=== PATIENT | female | born 1955 | race Caucasian/White ===

== ENCOUNTER 2024-11-06 00:11 | Inpatient (IN) | payer OTHER, MEDICARE ==
[~2024-11-06] VITALS: Ht 167.6 cm; Wt 56.7 kg
[2024-11-06] MEDS: DEXTROSE 50% WATER 50ML SYRINGE IV ONE (06:18)
[2024-11-06 08:27] LABS: BASOPHILS % 0.6 % (0.0-2.0); EOSINOPHILS % 4.3 % (0.0-5.0); HEMATOCRIT. 41.1 % (36.0-48.0); HEMOGLOBIN. 13.4 g/dL (12.0-16.0); LYMPHOCYTES % 12.8 % (20.0-50.0); MEAN CORPUSCULAR HEMOGLOBIN 28.3 pg (28.0-32.0); MEAN CORPUSCULAR HGB CONC 32.5 g/dL (31.0-37.0); MEAN CORPUSCULAR VOLUME 87.1 fL (81.0-99.0); MEAN PLATELET VOLUME 9.2 fl (7.4-10.4); MONOCYTES % 9.1 % (2.0-8.0); NEUTROPHILS % 73.2 % (40.0-76.0); PLATELET 272 x1000/uL (130-400); RED BLOOD CELL COUNT 4.72 mill/uL (4.2-5.4); WHITE BLOOD COUNT 6.9 x1000/uL (4.5-11.0)
[2024-11-06 08:36] LABS: CARBON DIOXIDE 22 mEq/L (21-32); CHLORIDE 112 mEq/L (98-107); POTASSIUM 3.4 mEq/L (3.5-5.1); SODIUM 142 mEq/L (136-145)
[2024-11-06 08:37] LABS: CALCIUM 11.7 mg/dL (8.7-10.4)
[2024-11-06 08:42] LABS: GLUCOSE 259 mg/dL (70-105); UREA NITROGEN BLOOD 17 mg/dL (9-23)
[2024-11-06 08:44] LABS: ACETAMINOPHEN < 2 ug/mL (10-30); TROPONIN I HIGH SENSITIVITY 10 ng/L (3.0-34)
[2024-11-06 08:47] LABS: ETHANOL BLOOD < 10 mg/dL (<10)
[2024-11-06 08:48] LABS: THYROID STIMULATING HORMONE 2.06 uIU/mL (0.55-4.78)
[2024-11-06] MEDS ORDERED: ACETAMINOPHEN 325MG TABLET PO PRN ×2 (09:45)
[2024-11-06] MEDS ORDERED: GUAIFENESIN 200MG/10ML SUGAR FREE UDC PO PRN (09:45)
[2024-11-06] MEDS ORDERED: MAGNESIUM/ALUMINUM HYDROXIDE/SIMETHICONE 30ML UDC PO PRN (09:45)
[2024-11-06] MEDS ORDERED: ONDANSETRON HCL 4MG/2ML INJ IV PRN (09:45)
[2024-11-06] MEDS ORDERED: DOCUSATE SODIUM 100MG CAPSULE PO PRN (09:45)
[2024-11-06] MEDS ORDERED: IPRATROPIUM/ALBUTEROL 0.5-3(2.5)MG/3ML NEB HHN PRN (09:45)
[2024-11-06 10:06] LABS: TROPONIN I HIGH SENSITIVITY 10 ng/L (3.0-34)
[2024-11-06] MEDS ORDERED: KCL 10MEQ/50ML PREMIX 50 ML IV NR (10:11)
[2024-11-06] MEDS ORDERED: DEXTROSE 50% WATER 50ML SYRINGE IV PRN (13:00)
[2024-11-06] MEDS: BLOOD SUGAR DIAGNOSTIC STRIP TEST SCH (13:46)
[2024-11-06] MEDS: INSULIN LISPRO 100 UNITS/ML SUBCUT SCH (13:53)
[2024-11-06] MEDS ORDERED: LOSARTAN 25 MG TABLET PO SCH (16:30)
[2024-11-06 20:00] VITALS: BP 152/51; PULSE 59; RESP 20; TEMP 37.0852
[2024-11-06] MEDS ORDERED: TICA90TA PO (20:05)
[2024-11-06] MEDS: TICAGRELOR 90 MG TABLET PO SCH (21:00)
[2024-11-06] MEDS ORDERED: LOSA50TA41 PO (21:14)
[2024-11-06] MEDS ORDERED: DONE5TAB33 PO (21:14)
[2024-11-06] MEDS ORDERED: ROSU20CA PO (21:14)
[2024-11-06] MEDS ORDERED: MIRT-90 PO (21:14)
[2024-11-06] MEDS ORDERED: NPH,100V SUBCUT (21:14)
[2024-11-06] MEDS ORDERED: METO25TA6 PO (21:14)
[2024-11-06] MEDS ORDERED: ARIP10TA86 PO (21:14)
[2024-11-06] MEDS ORDERED: ASPI-1497 PO (21:15)
[2024-11-07] VITALS: BP 159/60; PULSE 60; RESP 20; TEMP 36.33624; O2SAT 99
[2024-11-07 04:00] VITALS: BP 170/54; PULSE 60; RESP 20; TEMP 36.72516; O2SAT 99
[2024-11-07] MEDS: CLONIDINE 0.1MG TABLET PO PRN (04:23)
[2024-11-07 06:14] LABS: POTASSIUM 3.7 mEq/L (3.5-5.1)
[2024-11-07 06:15] LABS: CALCIUM 11.2 mg/dL (8.7-10.4)
[2024-11-07 06:16] LABS: CALCIUM 11.1 mg/dL (8.7-10.4)
[2024-11-07 06:18] LABS: AMMONIA 20 uMol/L (<32)
[2024-11-07 06:21] LABS: ALBUMIN 3.7 g/dL (3.2-4.8)
[2024-11-07 06:22] LABS: CREATINE KINASE 15 IU/L (34-145)
[2024-11-07 06:34] LABS: CREATINE KINASE < 15 IU/L (34-145)
[2024-11-07 07:02] LABS: BASOPHILS % 0.5 % (0.0-2.0); EOSINOPHILS % 4.4 % (0.0-5.0); HEMATOCRIT. 40.9 % (36.0-48.0); HEMOGLOBIN. 13.6 g/dL (12.0-16.0); LYMPHOCYTES % 13.2 % (20.0-50.0); MEAN CORPUSCULAR HEMOGLOBIN 28.7 pg (28.0-32.0); MEAN CORPUSCULAR HGB CONC 33.1 g/dL (31.0-37.0); MEAN CORPUSCULAR VOLUME 86.5 fL (81.0-99.0); MEAN PLATELET VOLUME 9.4 fl (7.4-10.4); MONOCYTES % 7.4 % (2.0-8.0); NEUTROPHILS % 74.5 % (40.0-76.0); PLATELET 240 x1000/uL (130-400); RED BLOOD CELL COUNT 4.73 mill/uL (4.2-5.4); RED CELL DISTRIBUTION WIDTH 14.5 % (11.6-14.6); WHITE BLOOD COUNT 8.3 x1000/uL (4.5-11.0)
[2024-11-07 08:00] VITALS: BP 142/52; PULSE 53; RESP 18; TEMP 36.44736; O2SAT 95
[2024-11-07] MEDS: LOSARTAN 50 MG TABLET PO SCH (09:00)
[2024-11-07] MEDS ORDERED: SODIUM CHLORIDE 0.45% 1,000 ML IV SCH (09:00)
[2024-11-07] MEDS: SODIUM CHLORIDE 0.9% 500 ML IV ONE (10:26)
[2024-11-07] MEDS: POTASSIUM CHLORIDE 20MEQ/PACKET PO NR (10:26)
[2024-11-07] MEDS: ASPIRIN 81MG TABLET PO NR (10:27)
[2024-11-07] MEDS: ASPIRIN 81MG TABLET PO SCH (10:30)
[2024-11-07 12:00] VITALS: BP 135/57; PULSE 50; RESP 18; TEMP 36.22512; O2SAT 95
[2024-11-07] MEDS ORDERED: TICAGRELOR 90 MG TABLET PO SCH (13:00)
[2024-11-07 16:00] VITALS: BP 107/38; PULSE 45; RESP 18; TEMP 36.55848; O2SAT 96
[2024-11-07] MEDS ORDERED: INSULIN LISPRO 100 UNITS/ML SUBCUT SCH (16:45)
[2024-11-07 18:42] VITALS: BP 107/38; PULSE 45; TEMP 97.8; O2SAT 96
[2024-11-07] MEDS ORDERED: INSULIN GLARGINE 100 UNITS/ML SUBCUT SCH (22:00)
== END 2024-11-07 19:01 | disposition short-term general hospital (02) | DRG 71 ==
LOC: ER 00:15 → 5WST 06:14 → EDBEDREQ 06:28 → EDBEDREQTM 06:28
PROVIDERS: ADMIT Internal Medicine; ATTEND Internal Medicine
DX: G93.49 Other encephalopathy (principal); F20.2 Catatonic schizophrenia; R00.1 Bradycardia, unspecified; E11.9 Type 2 diabetes mellitus without complications; E83.52 Hypercalcemia; E87.6 Hypokalemia; F03.90 Unspecified dementia, unspecified severity, without behavioral disturbance, psychotic disturbance, mood disturbance, and anxiety; I10 Essential (primary) hypertension; I25.10 Atherosclerotic heart disease of native coronary artery without angina pectoris; T50.995A Adverse effect of other drugs, medicaments and biological substances, initial encounter; Z79.82 Long term (current) use of aspirin; Z86.73 Personal history of transient ischemic attack (TIA), and cerebral infarction without residual deficits; Z95.5 Presence of coronary angioplasty implant and graft; Y92.89 Other specified places as the place of occurrence of the external cause
CPT/HCPCS: 36415; 71045; 80048; 80307; 80320; 80329; 82040; 82140; 82310; 82550; 82962; 83036; 83605; 83735; 83970; 84100; 84443; 84484; 85025; 93005; 99285; J1815; J3480; G0480; J8499

== ENCOUNTER 2024-11-20 12:34 | Inpatient (IN) | payer OTHER, MEDICARE ==
[~2024-11-20] VITALS: Ht 162.6 cm; Wt 56.9 kg
[~2024-11-20 12:34] MED LIST: ARIP10TA86 PO; ASPI-1497 PO; DONE5TAB33 PO; LOSA50TA41 PO; METO25TA6 PO; MIRT-90 PO; NPH,100V SUBCUT; ROSU20CA PO; TICA90TA PO
[2024-11-20 12:38] VITALS: O2SAT 89
[2024-11-20] MEDS ORDERED: NALOXONE HCL 0.4MG/ML 1ML VIAL IV NR (12:45)
[2024-11-20] MEDS ORDERED: NALOXONE HCL 0.4MG/ML 1ML VIAL ONE (13:07)
[2024-11-20] MEDS: ASPIRIN 81MG TABLET PO ONE (13:28)
[2024-11-20] MEDS: SODIUM CHLORIDE 0.9% (SEPSIS BOLUS) IV ONE (13:29)
[2024-11-20] MEDS: CEFTRIAXONE 1GM/50ML 50 ML IV ONE (13:30)
[2024-11-20 15:37] LABS: HEMOGLOBIN. 12.9 g/dL (12.0-16.0); MEAN CORPUSCULAR HEMOGLOBIN 28.3 pg (28.0-32.0); MEAN CORPUSCULAR HGB CONC 30.7 g/dL (31.0-37.0); MEAN CORPUSCULAR VOLUME 92.2 fL (81.0-99.0); RED BLOOD CELL COUNT 4.55 mill/uL (4.2-5.4); RED CELL DISTRIBUTION WIDTH 15.9 % (11.6-14.6); WHITE BLOOD COUNT 16.5 x1000/uL (4.5-11.0)
[2024-11-20 15:38] LABS: DIFFERENTIAL COMMENT 1
[2024-11-20 15:43] LABS: CHLORIDE 117 mEq/L (98-107); POTASSIUM 3.1 mEq/L (3.5-5.1); SODIUM 149 mEq/L (136-145)
[2024-11-20 15:44] LABS: CALCIUM 12.1 mg/dL (8.7-10.4); CARBON DIOXIDE 20 mEq/L (21-32)
[2024-11-20 15:49] LABS: GLUCOSE 366 mg/dL (70-105); LACTIC ACID 2.9 mmol/L (0.4-2.0); UREA NITROGEN BLOOD 36 mg/dL (9-23)
[2024-11-20 15:51] LABS: BETA HYDROXYBUTYRATE 0.9 mMol/L (0.0-0.3); ETHANOL BLOOD < 10 mg/dL (<10); TROPONIN I HIGH SENSITIVITY 127 ng/L (3.0-34)
[2024-11-20 15:54] LABS: PARTIAL THROMBOPLASTIN TIME < 21.0 sec (23.4-31.0); PROTHROMBIN TIME 11.1 sec (9.6-11.0)
[2024-11-20] MEDS: AZITHROMYCIN 500MG/250ML 250 ML IV ONE (16:08)
[2024-11-20 16:12] LABS: MEAN PLATELET VOLUME 9.8 fl (7.4-10.4); PLATELET 228 x1000/uL (130-400)
[2024-11-20 16:13] LABS: PLATELET ESTIMATE NORMAL
[2024-11-20] MEDS ORDERED: ACETAMINOPHEN 650MG SUPP PR PRN (19:15)
[2024-11-20] MEDS ORDERED: ACETAMINOPHEN 650MG/20.3ML UDC GT PRN (19:15)
[2024-11-20] MEDS ORDERED: IPRATROPIUM/ALBUTEROL 0.5-3(2.5)MG/3ML NEB HHN PRN (19:15)
[2024-11-20] MEDS ORDERED: DOCUSATE SODIUM 100MG CAPSULE PO PRN (19:15)
[2024-11-20] MEDS ORDERED: GUAIFENESIN 200MG/10ML SUGAR FREE UDC PO PRN (19:15)
[2024-11-20] MEDS ORDERED: MAGNESIUM/ALUMINUM HYDROXIDE/SIMETHICONE 30ML UDC PO PRN (19:15)
[2024-11-20] MEDS ORDERED: DEXTROSE 50% WATER 50ML SYRINGE IV PRN (19:15)
[2024-11-20] MEDS ORDERED: CLONIDINE 0.1MG TABLET PO PRN (19:15)
[2024-11-20] MEDS ORDERED: ONDANSETRON HCL 4MG/2ML INJ IV PRN (19:15)
[2024-11-20] MEDS: BLOOD SUGAR DIAGNOSTIC STRIP TEST SCH (21:35)
[2024-11-20] MEDS: INSULIN LISPRO 100 UNITS/ML SUBCUT SCH (21:47)
[2024-11-20 21:48] LABS: CLARITY URINE CLOUDY (CLEAR); COLOR URINE YELLOW (YELLOW); GLUCOSE URINE 3+ (NEGATIVE); KETONES URINE TRACE (NEGATIVE); LEUKOCYTE ESTERASE URINE TRACE (NEGATIVE); NITRITE URINE NEGATIVE (NEGATIVE); OCCULT BLOOD URINE 2+ (NEGATIVE); PROTEIN URINE 2+ (NEGATIVE); SPECIFIC GRAVITY URINE 1.024 (1.005-1.030); UROBILINOGEN URINE 0.2 E.U./dL (0.2-1.0)
[2024-11-20] MEDS: METOPROLOL TARTRATE 25MG TABLET PO SCH (21:57)
[2024-11-20 21:58] LABS: BACTERIA URINE 2+; SQUAMOUS EPITHELIAL CELL URINE 2+ /lpf (RARE/1+)
[2024-11-20] MEDS: SODIUM CHLORIDE 0.45% 1,000 ML IV SCH (21:59)
[2024-11-20] MEDS: KCL 20MEQ/100ML PREMIX 100 ML IV SCH (22:00)
[2024-11-20] MEDS ORDERED: PIPERACILLIN/TAZO 3.375G/100ML 100 ML IV SCH (22:00)
[2024-11-20 22:04] LABS: *AMPHETAMINES SCREEN URINE NEGATIVE (NEGATIVE); *BARBITURATES SCREEN URINE NEGATIVE (NEGATIVE); *BENZODIAZEPINES SCREEN URINE NEGATIVE (NEGATIVE); *COCAINE SCREEN URINE NEGATIVE (NEGATIVE); CANNABINOID URINE SCREEN NEGATIVE (NEGATIVE); ECSTASY MDMA SCREEN URINE NEGATIVE (NEGATIVE); METHADONE URINE SCREEN NEGATIVE (NEGATIVE); OPIATES URINE SCREEN NEGATIVE (NEGATIVE); PHENCYCLIDINE URINE SCREEN NEGATIVE (NEGATIVE)
[2024-11-21 00:58] LABS: TROPONIN I HIGH SENSITIVITY 490 ng/L (3.0-34)
[2024-11-21] MEDS: ENOXAPARIN 30MG/0.3ML SYR SUBCUT SCH (01:31)
[2024-11-21 05:16] LABS: BASOPHILS % 0.2 % (0.0-2.0); EOSINOPHILS % 0.2 % (0.0-5.0); HEMATOCRIT. 33.2 % (36.0-48.0); LYMPHOCYTES % 9.3 % (20.0-50.0); MEAN CORPUSCULAR VOLUME 87.7 fL (81.0-99.0); MEAN PLATELET VOLUME 9.2 fl (7.4-10.4); MONOCYTES % 7.9 % (2.0-8.0); NEUTROPHILS % 82.4 % (40.0-76.0); PLATELET 250 x1000/uL (130-400); RED BLOOD CELL COUNT 3.78 mill/uL (4.2-5.4); RED CELL DISTRIBUTION WIDTH 15.4 % (11.6-14.6)
[2024-11-21 05:31] LABS: CARBON DIOXIDE 18 mEq/L (21-32); CHLORIDE 124 mEq/L (98-107); POTASSIUM 3.5 mEq/L (3.5-5.1); SODIUM 152 mEq/L (136-145)
[2024-11-21 05:32] LABS: CALCIUM 11.6 mg/dL (8.7-10.4)
[2024-11-21 05:36] LABS: CREATININE 1.4 mg/dL (0.6-1.0)
[2024-11-21 05:37] LABS: GLUCOSE 187 mg/dL (70-105); TRIGLYCERIDE 146 mg/dL (0-150); UREA NITROGEN BLOOD 32 mg/dL (9-23)
[2024-11-21 05:38] LABS: ALANINE AMINOTRANSFERASE 16 IU/L (10-49); ALBUMIN 3.4 g/dL (3.2-4.8); ASPARTATE AMINOTRANSFERASE 20 IU/L (<34); LDL CHOLESTEROL 45 mg/dL (5-100)
[2024-11-21 05:39] LABS: BILIRUBIN DIRECT 0.2 mg/dL (<=3.0); BILIRUBIN TOTAL 0.7 mg/dL (0.1-1.0); CHOLESTEROL 100 mg/dL (<200); CREATINE KINASE 149 IU/L (34-145); HDL CHOLESTEROL 31 mg/dL (>65); PROTEIN TOTAL 5.5 g/dL (6.0-8.3)
[2024-11-21 05:41] LABS: T4 FREE 1.01 ng/dL (0.89-1.76); THYROID STIMULATING HORMONE 1.22 uIU/mL (0.55-4.78)
[2024-11-21 06:10] LABS: TROPONIN I HIGH SENSITIVITY 471 ng/L (3.0-34)
[2024-11-21] MEDS: PIPERACILLIN/TAZO 3.375G/50ML 50 ML IV SCH (09:09)
[2024-11-21] MEDS: PANTOPRAZOLE SODIUM 40 MG/VIAL IV SCH (09:15)
[2024-11-21] MEDS: ASPIRIN 81MG EC TABLET PO SCH (09:16)
[2024-11-21 11:39] VITALS: BP 112/52; PULSE 72; RESP 17; TEMP 36.8072
[2024-11-21 12:00] VITALS: BP 146/57; PULSE 70; RESP 18; TEMP 36.72516; O2SAT 98
[2024-11-21 16:00] VITALS: BP 145/47; PULSE 70; RESP 17; TEMP 36.72516; O2SAT 99
[2024-11-21] MEDS: DEXT 5%/0.45% NACL 1000ML 1,000 ML IV SCH (17:27)
[2024-11-21 20:00] VITALS: BP 119/44; PULSE 74; RESP 18; TEMP 35.94732; O2SAT 96
[2024-11-21 23:30] VITALS: BP 133/42; PULSE 67; RESP 16; TEMP 36.44736; O2SAT 98
== END 2024-11-22 00:20 | disposition short-term general hospital (02) | DRG 871 ==
LOC: ER 12:34 → EDBEDREQTM 13:15 → EDBEDREQ 13:15 → EDBEDREQSVC 13:15 → 6WST 15:59 → EDBEDREQSVC 16:07 → EDBEDREQ 16:07 → EDBEDREQSVC 11-21 03:08 → 8WST 11-21 05:40
PROVIDERS: ADMIT Hospitalist; ATTEND Hospitalist
DX: A41.9 Sepsis, unspecified organism (principal); G92.8 Other toxic encephalopathy; J69.0 Pneumonitis due to inhalation of food and vomit; E87.0 Hyperosmolality and hypernatremia; N39.0 Urinary tract infection, site not specified; N17.9 Acute kidney failure, unspecified; E78.5 Hyperlipidemia, unspecified; H43.23 Crystalline deposits in vitreous body, bilateral; E11.22 Type 2 diabetes mellitus with diabetic chronic kidney disease; I12.9 Hypertensive chronic kidney disease with stage 1 through stage 4 chronic kidney disease, or unspecified chronic kidney disease; R79.89 Other specified abnormal findings of blood chemistry; N18.9 Chronic kidney disease, unspecified; E83.52 Hypercalcemia; E87.6 Hypokalemia; Z79.82 Long term (current) use of aspirin; Z86.73 Personal history of transient ischemic attack (TIA), and cerebral infarction without residual deficits; Z98.61 Coronary angioplasty status; Z99.3 Dependence on wheelchair
CPT/HCPCS: 36415; 71045; 80048; 80061; 80076; 80305; 80320; 81003; 82010; 82550; 82803; 82962; 83036; 83605; 83735; 83880; 84145; 84439; 84443; 84484; 85025; 86850; 86900; 93005; 99291; A4606; J0456; J0696; J1650; J1815; J2310; J2470; J2543; J3480; J7030; G0480